=== PATIENT | female | born 1955 | race Caucasian/White ===

== ENCOUNTER 2021-03-19 12:53 | Outpatient (CLI) | payer MEDICARE, BC, SELFPAY ==
--- NOTE | 2021-03-19 | FLU_PTH ---
PATIENT: TEETEE SALINAS LOC: [facility] #:[id number] AGE/SX: 66/F ROOM: RE03/19/[address]: Dr. Mansoor Hurlye MD : 1955 BED: DIS: 03/19/2021 SPEC #: [id number] RECD: 03/20/21 05:55 STATUS: LALITHA [place] #: [id number] HEMANT: 03/19/21 00:[address]: Mansoor Hurley DEPT: CYTOLOGY RECD BY: Jame Beltran Tissues: Neck, NOS Procedures: Special Stain Group II Surgery Specimen Level IV Cytospin Fluid HEADER OPERATION: Fine needle aspiration, left neck mass PRE-OP DIAGNOSIS: Level 4, firm, left neck mass TISSUE SUBMITTED: Left neck mass fluid for cytology DIAGNOSIS CYTOLOGY Left neck mass fluid for cytology (cytospin and cell block): Suggestive of atypical lymphoid tissue. See comment. MARGOT:uma 03/20/2021 COMMENT Immunohistochemistry ([id number]) is negative for metastatic carcinoma and shows small lymphocytes positive for CD-79a and BCL-2 suspicious for involvement by B-cell lymphoproliferative disorder. If there is a high suspicion of malignancy, biopsy/excision of the lesion is suggested for definite diagnosis. This case is discussed with Dr. Hurley on 03/22/21. Case has been reviewed in consultation with Dr. Carrizales who concurs with the above diagnosis. IDC:AM CYTOLOGY STUDY Slides are reviewed. CYTOLOGY GROSS Received is 35 ml of red cloudy fluid labeled with the patient's name and and designated per the requisition as left neck mass. Submitted for cytology preparation including cell block. / uma 03/19/21 TC:5 CPT: 59034, 78122
--- NOTE | 2021-03-19 | IMM_PTH ---
PATIENT: TEETEE SALINAS LOC: [facility] U#:[id number] AGE/SX: 66/F ROOM: RE03/19/[address]: Dr. Mansoor Hurley MD : 1955 BED: DIS: 03/19/2021 SPEC #: [id number] RECD: 03/20/21 13:31 STATUS: LALITHA REQ #: [id number] HEMANT: 03/19/21 00:[address]: Mansoor Hurley DEPT: IMMUNOHISTOCHEMISTRY RECD BY: Vita Abarca Tissues: Neck, NOS Procedures: BCL-2 (add) BCL-6 (add) CD10 (add) CD20 (add) CD23 (add) CD3 (add) CD43 (add) CD45 (add) CD5 (add) CD79A (add) CK8 (add) CYCLIN (add) KI-67 (add) Pankeratin (initial) PHYSICIAN & INSTITUTION [address] [address] SPECIMEN INFORMATION: Tissue Source: Left neck mass Clinical Info: Left neck mass Specimen Number: [id number] CPT code: 29348, 86684 x13 METHODOLOGY: Deparaffinized sections of prefer/formalin-fixed tissue or PAP/DQ stained slides are incubated with monoclonal/polyclonal antibodies/oligonucleotide probes. Localization is made via biotin free immunoperoxidase method. Appropriate controls are performed and reacted as expected. Results on target cell population are indicated in the following table: RESULTS: ANTIBODY / CLONE RESULT AE1-3 (AE1/AE3/PCK26) negative CK8 (47ldlcH24) negative CD3 (PS1) positive CD5 (SP10) positive CD20 (L26) positive CD45 (RP2/18) negative CD79a (11E3) positive Ki-67 (30-9) positive CD10 (56C6) positive CD23 (1B12) positive BCL-2 (bcl-2/100/D5) positive BCL-6 (AD881M/A8) negative Cyclin D1/BCL-1 (SP4) negative CD43 (L60) positive These tests were developed and their performance characteristics determined by [facility]. They may not have been cleared or approved by the U.S. Food and Drug Administration. The FDA has determined that such clearance or approval is not necessary. The above immunohistochemical/dualISH markers are ordered and reviewed by the Pathologist. INTERPRETATION: Left neck mass, fine needle aspiration (cell block): Suggestive of atypical lymphoid tissue. See comment. MARGOT:uma 03/22/2021 Comment: Suspicious for involvement by B-cell lymphoproliferative disorder. Case has been reviewed in consultation with Dr. Carrizales who concurs with the above diagnosis. IDC:SINTIA
== END 2021-03-19 23:59 | disposition short-term general hospital (02) ==
PROVIDERS: Referring Provider Otolaryngology; Visit Provider Otolaryngology
DX: R22.1 Localized swelling, mass and lump, neck (principal)
CPT/HCPCS: 88108; 88305; 88313; 88341; 88342

== ENCOUNTER 2021-03-30 05:52 | Day surgery (SDC) | payer MEDICARE, BC, SELFPAY ==
--- NOTE | 2021-03-30 | LYMN_PTH ---
PATIENT: TEETEE SALINAS [place] [facility] [place][id number] AGE/SX: 66/F ROOM: RE03/30/[address]: Dr. Mansoor Hurley MD : 1955 BED: DIS: 03/30/2021 SPEC #: [id number] RECD: 03/30/21 08:15 STATUS: LALITHA VINNIE #: [id number] HEMANT: 03/30/21 00:[address]: Mansoor Hurley DEPT: SURGICAL PATHOLOGY RECD BY: Vita Abarca Tissues: LYMPH NODE BIOPSY Procedures: Frozen Section (charge) Surgery Specimen Level IV HEADER OPERATION: Radical neck biopsy/excision, lymph nodes, open, deep cervical nodes PRE-OP DIAGNOSIS: Cervical lymphadenopathy TISSUE SUBMITTED: Left deep cervical lymph node FROZEN SECTION DIAGNOSIS Left deep cervical lymph node, biopsy: Atypical lymph node tissue. 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 See microscopic description and comment. SJ:uma 04/04/2021 COMMENT Immunohistochemistry ([id number]) supports the above diagnosis. Flow cytometry study from [facility] shows partial involvement by B-cell lymphoma of follicle center cell origin. Phenotype of clonal B-cells: kappa positive, CD19 (dim), CD20 (bright), CD10 positive, CD5 negative, CD38 positive; 18%. Background polyclonal B-cells: 37%. No evidence of T-cell lymphoma. The complete report is viewable in patient?s EMR. Case has been reviewed in consultation with Dr. Carrizales who concurs with the above diagnosis. IDC:AM MICROSCOPIC DESCRIPTION Slides are reviewed. The specimen shows lymph node tissue with replacement of normal lymph node architecture in multiple follicles. The follicles are comprised predominantly of atypical small and large lymphocytes. The large atypical lymphocytes comprise in focal areas more than 15 per high power field. Areas of necrosis or diffuse involvement are not seen. GROSS DESCRIPTION Received fresh for frozen section diagnosis labeled with the patient's name is a specimen designated left deep cervical lymph node. The specimen consists of a seay nodular piece of soft tissue measuring 2 x 1.5 x 1 cm. The specimen is serially sectioned and reveal seay, fleshy cut surfaces. A specimen is submitted for frozen section diagnosis. A section is also submitted for flow cytometry studies. The entire specimen is submitted in three cassettes as follows: 1 ? frozen section, 2 & 3 ? rest of the specimen. / SJ:rg 03/30/2021 TC:0 CPT: 01392, 63587 ADDENDUM ADDENDUM ADDENDUM ADDENDUM ADDENDUM ADDENDUM ADDENDUM ADDENDUM ADDENDUM ADDENDUM 05/08/2021 11:08 ADDENDUM 05/08/2021 11:08 ADDENDUM 05/08/2021 11:08 ADDENDUM 05/08/2021 11:08 ADDENDUM 05/08/2021 11:08 This addendum is added to incorporate an outside pathology consultation report. The case was examined at [facility] (#[id number]) and the following diagnosis was rendered. Left deep cervical lymph node, excisional biopsy: Follicular lymphoma, grade 1-2. Please see complete above mentioned consultation report in EMR
--- NOTE | 2021-03-30 | IMM_PTH ---
PATIENT: TEETEE SALINAS [place] [facility] [place][id number] AGE/SX: 66/F ROOM: RE03/30/[address]: Dr. Mansoor Hurley MD : 1955 BED: DIS: 03/30/2021 SPEC #: [id number] RECD: 04/02/21 12:53 STATUS: LALITHA REQ #: [id number] HEMANT: 03/30/21 00:[address]: Mansoor Hurley DEPT: IMMUNOHISTOCHEMISTRY RECD BY: Vita Abarca Tissues: Lymph node of neck, NOS Procedures: BCL-2 (add) BCL-6 (add) CD10 (add) CD20 (add) CD23 (add) CD30 (add) CD43 (add) CD45 (add) CD5 (add) CD79A (add) CYCLIN (add) KI-67 (add) MUM1 (add) CD3 (initial) PHYSICIAN & INSTITUTION [address] [address] SPECIMEN INFORMATION: Tissue Source: Left deep cervical lymph node Clinical Info: Cervical lymphadenopathy Specimen Number: [id number] #2 CPT code: 04075, 22301 x13 METHODOLOGY: Deparaffinized sections of prefer/formalin-fixed tissue or PAP/DQ stained slides are incubated with monoclonal/polyclonal antibodies/oligonucleotide probes. Localization is made via biotin free immunoperoxidase method. Appropriate controls are performed and reacted as expected. Results on target cell population are indicated in the following table: RESULTS: ANTIBODY / CLONE RESULT Block 2 CD3 (PS1) negative CD5 (SP10) negative CD10 (56C6) positive CD20 (L26) positive CD23 (1B12) negative CD30 (Ashwin-H2) negative CD43 (L60) negative CD45 (RP2/18) positive CD79a (11E3) positive BCL-2 (bcl-2/100/D5) positive BCL-6 (FG744W/A8) positive Cyclin D1/BCL-1 (SP4) negative MUM1 (MRQ-43) negative Ki-67 (30-9) positive, high These tests were developed and their performance characteristics determined by [facility]. They may not have been cleared or approved by the U.S. Food and Drug Administration. The FDA has determined that such clearance or approval is not necessary. The above immunohistochemical/dualISH markers are ordered and reviewed by the Pathologist. 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 SJ:uma 04/03/2021 Case has been reviewed in consultation with Dr. Carrizales who concurs with the above diagnosis. IDC:SINTIA
[2021-03-30 06:43] VITALS: BP 114/75; PULSE 80; RESP 16; TEMP 37; O2SAT 100; BMI 20.4
[2021-03-30] MEDS: Lactated Ringers 1,000 ML 15 ML IV (06:47)
[2021-03-30] MEDS: Lidocaine 1% /Epi 1:100 (50ml) 50 ML VIAL (07:58)
--- NOTE | 2021-03-30 08:20 | PCM.OPRPT ---
Problems Associated Problem List Diagnoses (1) Cervical lymphadenopathy: Report of Operation Date of Procedure: 03/30/21 Pre-Operative Diagnosis: Left level 4 cervical adenopathy with fine needle biopsy suspicious for B-cell lymphoma Post-Operative Diagnosis: Same Surgery/Procedure Performed:: Left deep cervical lymph node biopsy Description of Surgical Findings:: Elzbieta is a 66-year-old female who presents with left low anterior neck cervical lymphadenopathy. Clinical exam and imaging failed to show any evidence of primary malignancy to suggest metastatic disease and fine-needle aspiration biopsy of the large lymph node suggested B-cell lymphoma with open biopsy advised for further assessment and typing. The patient was counseled on these findings and deep cervical lymph node biopsy for further evaluation to allow for treatment planning and she was agreeable to proceed. The risks, alternatives, potential complications, and benefits were discussed at length and any questions answered to the patient and/or caregiver's satisfaction. Witnessed informed consent was obtained in the office, and the patient and/or caregiver was agreeable to proceed. Procedure went as follows: The patient was identified in preoperative holding and brought to the operating room, placed under general anesthesia and intubated. When appropriate anesthesia was obtained, the left neck was prepped and draped in usual sterile fashion. The planned incision site was then injected with 1% lidocaine with 100,000 epinephrine for a total of [2] mL. After allowing for vasoconstriction, a skin incision over the large palpable lymph node just above the clavicle and lateral to the sternocleidomastoid sternal head was then created to 15 blade scalpel through the skin subcutaneous tissues and platysma. Dissection was then carried out along the sternocleidomastoid where overlying the vascular sheath was noted to be a large firm lymph node approximately 2.5 x 3 cm in size. This was dissected free of the surrounding tissue using bipolar cautery for hemostasis. Care was taking along the inferior and deep aspects to avoid injury to the anterior jugular vein, transverse cervical artery, and apex of the lung pleura which were all in the vicinity of this mass and the node was then sent for pathologic specimen. The wound was then closed deeply with interrupted 3-0 Vicryl sutures closing the space and reapproximating the platysma and subcutaneous tissues. A running 5-0 Monocryl subcuticular stitch was then placed to close the skin followed by Cavilon and Steri-Strips. The patient was then returned to anesthesia, was revived and extubated without complication having tolerated the procedure well. Surgeon: Mansoor Hurley Type of Anesthesia: General Anesthesiologist: Claude French Specimen's removed: left deep cervical lymph node Drains: none Estimated Blood Loss (mL): 0 mL Fluids Replaced: 800 mL Grafts/Implants Used: none Complications none Admit VTE Documentation VTE Present on Admission: No VTE Mechan Device Prophylaxis: SCD's VTE Pharm Prophylaxis ordered?: No
--- NOTE | 2021-03-30 08:26 | PCM.DC ---
Discharge Instructions Diet Discharge Diet: No restrictions Activity Discharge Activity: Return to Normal Activity Dressing / Incision Call your doctor if your incision/area has: Sudden Increased Bleeding, Increased Pain/ Swelling, Foul Smelling Discharge and Swelling at the incision site Call your doctor if you observe: Fever of 101 or Higher, Shortness of breath and Uncontrolled pain Cleanse incision/area with: Do not get Incision Wet Follow Up Care Please Follow Up With: nia When: 2 weeks Test Results: Test results from this visit will be discussed in further detail at your follow-up appointment, if applicable. Discharge Plan Admission Primary Reason for Your Visit: left cervical lymphadenopathy Attending Provider: Mansoor Hurley Discharge Orders/Prescriptions Prescriptions: New acetaminophen 500 mg Tablet 500 mg PO Q4H PRN MDD 4000 mg PRN (Reason: Pain Score 1-5/10) 5 Days RF: 0 Continued cetirizine-pseudoephedrine [Zyrtec-D] 5-120 mg Tablet Extended Release 12 Hr 1 tab PO DAILY RF: 0 cyclobenzaprine 10 mg tablet 10 mg PO TID RF: 0 famotidine 40 mg Tablet 40 mg PO DAILY RF: 0 sodium chloride 1 gram Tablet 1,000 mg PO TID RF: 0 acetaminophen-codeine 300-30 mg tablet 1 tab PO Q6H PRN (Reason: Pain) RF: 0 esomeprazole magnesium [Nexium] 20 mg Capsule,Delayed Release(Dr/Ec) 20 mg PO DAILY RF: 0 aripiprazole [Abilify] 5 mg Tablet 5 mg PO DAILY RF: 0 duloxetine [Cymbalta] 60 mg capsule,delayed release(DR/EC) 60 mg PO DAILY RF: 0 Referrals / Follow Up: COLBY HANSON [Other] Disposition Disposition (needs filled in before D/C Order can be placed): Home, Self Care
[2021-03-30 08:28] VITALS: BP 110/77; BP 114/75; PULSE 74; RESP 16; TEMP 35.9; O2SAT 96
[2021-03-30 08:30] VITALS: BP 114/75; BP 128/81; PULSE 75; RESP 16; O2SAT 98
[2021-03-30 08:45] VITALS: BP 105/63; BP 114/75; PULSE 72; RESP 16; O2SAT 100
[2021-03-30 08:56] VITALS: BP 112/61; BP 114/75; PULSE 65; RESP 16; TEMP 36.2; O2SAT 100
[2021-03-30 09:10] VITALS: BP 105/62; BP 114/75; PULSE 68; RESP 16; O2SAT 98
== END 2021-03-30 23:59 | disposition home or self-care (01) ==
LOC: SDC 06:02 → AC 06:02
PROVIDERS: Referring Provider Otolaryngology; Visit Provider Otolaryngology
PROC: (CPT 38724; principal; 2021-03-30 07:15)
DX: C82.51 Diffuse follicle center lymphoma, lymph nodes of head, face, and neck (principal); J44.9 Chronic obstructive pulmonary disease, unspecified; R07.0 Pain in throat; R50.9 Fever, unspecified; K21.9 Gastro-esophageal reflux disease without esophagitis; M19.90 Unspecified osteoarthritis, unspecified site; F32.A Depression, unspecified; F41.9 Anxiety disorder, unspecified; Z79.899 Other long term (current) drug therapy; Z87.891 Personal history of nicotine dependence
CPT/HCPCS: 38510; 00320; 88305; 88331; 88341; 88342; J7120; J2405; J3490